=== PATIENT | male | born 1975 | race Caucasian/White ===

== ENCOUNTER 2019-04-30 18:54 | Emergency (ER) | payer MEDICAID ==
--- NOTE | 2019-04-30 19:38 | EDM.PDOC ---
ED HPI GENERAL MEDICAL PROBLEM - General Chief Complaint: General Stated Complaint: FEVER,CHEST HEAVINESS Time Seen by Provider: 04/30/19 19:27 Source of Information: Reports: Patient, Significant Other History Limitations: Reports: No Limitations - History of Present Illness INITIAL COMMENTS - FREE TEXT/NARRATIVE: Patient presents with fever, dyspnea, fatigue and weakness. This started yesterday and continues today. He hasn't had a bad cough but his lungs feel tight. Temp has been in the 102's and he has been taking Tylenol. A week ago he had a 2-day course of vomiting and diarrhea that was quite severe. That is okay now. His [id number] is hospitalized with pneumonia. Pt didn't have the flu shot. He is a smoker. 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 [No Known Home Meds] 08/14/13 [History] Past Medical History - Past Health History Medical/Surgical History: Denies Medical/Surgical History Social & Family History - Living Situation & Occupation Occupation: Employed ED ROS GENERAL - Review of Systems Review Of Systems: See Below Constitutional: Reports: Fever, Chills, Malaise, Weakness, Fatigue HEENT: Denies: Ear Pain, Throat Pain, Vision Change Respiratory: Reports: Shortness of Breath (a little), Cough (mild) Cardiovascular: Denies: Chest Pain, Lightheadedness, Syncope GI/Abdominal: Denies: Abdominal Pain, Diarrhea, Vomiting : Denies: Dysuria, Flank Pain Musculoskeletal: Reports: No Symptoms Skin: Denies: Cyanosis, Jaundice, Mottled, Pallor, Diaphoresis Neurological: Denies: Confusion, Dizziness, Seizure, Syncope, Trouble Speaking, Difficulty Walking Psychiatric: Denies: Agitation, Anxiety, Confusion ED EXAM, GENERAL - Physical Exam Exam: See Below Exam Limited By: No Limitations General Appearance: Alert, WD/WN, No Apparent Distress Eye Exam: Bilateral Eye: EOMI, Normal Inspection, PERRL Ears: Normal External Exam, Hearing Grossly Normal Nose: Normal Inspection, No Blood Throat/Mouth: Normal Lips, Normal Oropharynx, Normal Voice, No Airway Compromise , Other (very poor dentition) Head: Atraumatic, Normocephalic Neck: Normal Inspection, Supple, Non-Tender, Full Range of Motion Respiratory/Chest: No Respiratory Distress, No Accessory Muscle Use, Crackles ( right lung base primary with slight in left too). No: Rhonchi, Wheezing, Stridor Cardiovascular: Normal Peripheral Pulses, Regular Rate, Rhythm, No Murmur GI/Abdominal: Normal Bowel Sounds, Soft, Non-Tender, No Organomegaly, No Distention Back Exam: Normal Inspection, Full Range of Motion. No: CVA Tenderness (L), CVA Tenderness (R) Extremities: Normal Inspection, Normal Range of Motion Neurological: Alert, Oriented, Normal Cognition, No Motor/Sensory Deficits Psychiatric: Normal Affect, Normal Mood Skin Exam: Warm, Dry, Intact, Normal Color, No Rash Course - Vital Signs Last Recorded V/S: Last Vital Signs Temp 100.8 F H 04/30/19 20:14 Pulse 104 H 04/30/19 19:07 Resp 20 04/30/19 19:07 BP 125/76 04/30/19 19:07 Pulse Ox 94 L 04/30/19 19:07 - Orders/Labs/Meds Orders: Active Orders 24 hr Category Date Time Status CULTURE BLOOD [BC] Stat Lab 04/30/19 19:05 Ordered CULTURE BLOOD [BC] Stat Lab 04/30/19 19:13 Ordered Labs: Laboratory Tests 04/30/19 04/30/19 04/30/19 Range/Units 19:15 19:15 19:15 WBC 17.29 H (5.00-10.00) 10^3/uL RBC 5.28 (4.50-6.00) 10^6/uL Hgb 16.0 (13.0-17.0) g/dL Hct 45.3 (40.0-52.0) % MCV 85.8 (82.0-92.0) fL MCH 30.3 (27.0-31.0) pg MCHC 35.3 (32.0-36.0) g/dL RDW 12.0 (11.5-14.5) % Plt Count 211 (150-400) 10^3/uL MPV 10.0 (7.4-10.4) fL Immature Gran % (Auto) 0.5 (0.0-5.0) % Neut % (Auto) 89.8 H (50.0-70.0) % Lymph % (Auto) 4.0 L (20.0-40.0) % Lares % (Auto) 5.4 (2.0-8.0) % Eos % (Auto) 0.0 L (1.0-3.0) % Baso % (Auto) 0.3 (0.0-1.0) % Immature Gran # (Auto) 0.08 (0.00-0.50) 10^3/uL Neut # (Auto) 15.51 H (2.50-7.00) 10^3/uL Lymph # (Auto) 0.70 L (1.00-4.00) 10^3/uL Lares # (Auto) 0.94 H (0.10-0.80) 10^3/uL Eos # (Auto) 0.00 L (0.10-0.30) 10^3/uL Baso # (Auto) 0.06 (0.00-0.10) 10^3/uL Sodium 133 L (136-145) mmol/L Potassium 3.7 (3.3-5.3) mmol/L Chloride 97 L (98-115) mmol/L Carbon Dioxide 21.7 (21.0-32.0) mmol/L Anion Gap 18.0 H (5-15) mmol/L BUN 14 (6-25) mg/dL Creatinine 0.76 (0.51-1.17) mg/dL Est Cr Clr Drug Dosing 129.40 mL/min Estimated GFR (MDRD) > 60 mL/min Glucose 130 H (75 - 99) mg/dL Lactic Acid 1.0 (0.4-2.0) mmol/L Calcium 8.9 (8.7-10.3) mg/dL Meds: Medications Discontinued Medications Generic Name Dose Route Start Last Admin Trade Name Freq PRN Reason Stop Dose Admin Azithromycin 500 mg 04/30/19 20:17 Zithromax PO 04/30/19 20:18 ONETIME ONE Ceftriaxone Sodium 1 gm 04/30/19 19:53 04/30/19 20:14 Rocephin IVPUSH 04/30/19 19:54 1 gm ONETIME ONE Administration Ibuprofen Confirm 04/30/19 20:04 04/30/19 20:12 Motrin Administered 04/30/19 20:05 Not Given Dose 600 mg .ROUTE .STK-MED ONE Ibuprofen 600 mg 04/30/19 20:12 04/30/19 20:14 Motrin PO 04/30/19 20:13 600 mg ONETIME ONE Administration Sterile Water Confirm 04/30/19 20:05 04/30/19 20:11 Sterile Water For Injection Administered 04/30/19 20:06 Not Given Dose 30 ml .ROUTE .STK-MED ONE - Re-Assessments/Exams Free Text/Narrative Re-Assessment/Exam: 04/30/19 19:56 WBC is 17.29 and ANC 15.51, CXR shows infiltrates in LLL consistent with pneumonia. Will give Rocephin 1 gm IVP now. 04/30/19 20:20 Lactic acid is normal and Influenza A/B are negative. Discussed findings and treatment plan with patient and his and he is discharged to home after getting Rocephin and Zithromax. He will take Augmentin and Z-pack outpatient beginning tomorrow. Departure - Departure Time of Disposition: 20:18 Disposition: Home, Self-Care 01 Condition: Good Clinical Impression: CAP (community acquired pneumonia) Qualifiers: Laterality: unspecified laterality Qualified Code(s): J18.9 - Pneumonia, unspecified organism - Discharge Information Instructions: Community-Acquired Pneumonia, Adult, [id number] Forms: ED Department Discharge Additional Instructions: 1. Drink 8 cups of water daily. 2. Take the antibiotics as directed. 3. You can use Tylenol and/or Ibuprofen as directed for fever control when needed. 4. Follow up with a PCP in 7-10 days for recheck to make sure the pneumonia is completely resolved. 5. If worsening, or not improving with treatment, recheck with PCP sooner as needed. Sepsis Event Note - Evaluation Sepsis Screening Result: Possible Sepsis Risk - Focused Exam Vital Signs: Vital Signs Temp Temp Pulse Resp BP Pulse Ox 04/30/19 20:14 100.8 F H 04/30/19 19:07 101.4 F H 104 H 20 125/76 94 L Date Exam was Performed: 04/30/19 Time Exam was Performed: 20:21 - My Orders Last 24 Hours: My Active Orders 04/30/19 19:05 CULTURE BLOOD [BC] Stat 04/30/19 19:13 CULTURE BLOOD [BC] Stat - Assessment/Plan Last 24 Hours: My Active Orders 04/30/19 19:05 CULTURE BLOOD [BC] Stat 04/30/19 19:13 CULTURE BLOOD [BC] Stat
[2019-04-30 19:49] LABS: CHLORIDE,CL 97 mmol/L (98-115); SODIUM,NA 133 mmol/L (136-145)
[2019-04-30] MEDS ORDERED: cefTRIAXone 1 GM Vial IVPUSH ONE (19:53)
--- NOTE | 2019-04-30 19:53 | CR ---
[id number] RAD/RAD Chest PA And Lateral EXAM: FRONTAL AND LATERAL CHEST INDICATION: CHEST TIGHTNESS/FEVER COMPARISON: None. DISCUSSION: Mild left lower lobe infiltrates are compatible with pneumonia. The heart is normal in size. No effusions. IMPRESSION: 1. Mild left lower lobe pneumonia. Guzman Rivera MD 04/30/191951 Thank you for allowing us to participate in the care of your patient.
[2019-04-30] MEDS ORDERED: Ibuprofen 600 MG Tab ONE (20:04)
[2019-04-30] MEDS ORDERED: Water For Injection,Bacteriostatic 30 ML MDV ONE (20:05)
[2019-04-30] MEDS ORDERED: Ibuprofen 600 MG Tab PO ONE (20:12)
[2019-04-30] MEDS ORDERED: Azithromycin 250 MG Tab PO ONE (20:17)
== END 2019-04-30 20:45 | disposition home or self-care (01) ==
LOC: KA.ED 18:54
DX: J18.9 Pneumonia, unspecified organism (principal)
CPT/HCPCS: 71046; 80048; 83605; 85025; 87040; 87804; 96374; 99283; A9270; J0696; 87077

== ENCOUNTER 2019-08-31 23:33 | Emergency (ER) | payer MEDICAID ==
[2019-08-31] MEDS: Tetracaine HCl/PF 0.5% 4 ML Bottle EYELF ONE (23:37)
[2019-08-31] MEDS: Tetracaine HCl/PF 0.5% 4 ML Bottle ONE (23:56)
[2019-09-01] MEDS: Erythromycin Base 0.5% Ophth Oint 3.5 GM Tube EYEBOTH ONE (00:05)
[2019-09-01] MEDS: Erythromycin Base 0.5% Ophth Oint 3.5 GM Tube ONE (00:09)
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
== END 2019-09-01 00:15 | disposition home or self-care (01) ==
LOC: KA.ED 23:33
DX: S05.02XA Injury of conjunctiva and corneal abrasion without foreign body, left eye, initial encounter (principal); H53.8 Other visual disturbances; F17.210 Nicotine dependence, cigarettes, uncomplicated; W39.XXXA Discharge of firework, initial encounter
CPT/HCPCS: 99283; A9270-GY

== ENCOUNTER 2021-10-10 11:38 | Emergency (ER) | payer MEDICAID ==
[2021-10-10] MEDS: Sodium Chloride 0.9% 1,000 ML IV ONE (11:54)
[2021-10-10] MEDS: Sodium Chloride 0.9% 10 ML Syringe FLUSH PRN (11:56)
[2021-10-10 12:14] LABS: ANION GAP 13.2 mmol/L (5-15); CHLORIDE,CL 104 mmol/L (98-107); ESTIMATED GFR 110 mL/min (>=60); SODIUM,NA 142 mmol/L (136-145)
== END 2021-10-10 13:15 | disposition home or self-care (01) ==
LOC: KA.ED 11:38
DX: R07.89 Other chest pain (principal); F17.210 Nicotine dependence, cigarettes, uncomplicated
CPT/HCPCS: 36415; 71046; 80053; 84484; 85025; 85379; 86140; 93005; 93010; 96360; 99284; 99285-25; J3490; J7030